=== PATIENT | female | born 1940 | race Caucasian/White ===

== ENCOUNTER 2017-10-19 14:50 | Outpatient (REF) | payer MEDICARE, BC, SELFPAY ==
[2017-10-19 21:44] LABS: Abs Immature Grans 0.01 k/cumm (0.0-0.09); Absolute Basophil Count 0.04 k/cumm (0.0-0.2); Absolute Eosinophil Count 0.11 k/cumm (0.0-0.7); Absolute Monocyte Count 0.55 k/cumm (0.11-0.7); Absolute Neutrophil Count 3.79 k/cumm (1.2-6.7); Basophils % 0.7; Eosinophils % 1.9; HGB 13.5 g/dL (12.0-15.5); Immature Grans % 0.2; Lymphocytes % 22.4; Mean Corp. HGB Concentration 33.8 g/dL (32.0-36.0); Mean Corpuscular Hemoglobin 32.1 pg (27.0-33.0); Mean Platelet Volume 13.6 fL (8.0-11.0); Monocytes % 9.5; Neutrophils % 65.3; Platelet Count 136 x1000/uL (130-400); RBC 4.21 m/cumm (4.00-5.20); RBC Distribution Width 14.9 % (11.7-14.6)
[2017-10-19 22:17] LABS: ALT 24 U/L (12-78); AST 20 U/L (15-37); Alkaline Phosphatase 90 U/L (46-116); Anion Gap 11.3 mmol/L (3-11); BUN 25 mg/dL (7-18); Bilirubin, Total 0.6 mg/dL (0.2-1.0); CO2 26.7 mmol/L (21.0-32.0); CREATININE 1.27 mg/dL (0.55-1.02); Calcium 8.8 mg/dL (8.5-10.1); Chloride 105 mmol/L (98-107); Cholesterol 163 mg/dL (50-200); Glucose 227 mg/dL (70-100); HDL Cholesterol 38 mg/dL (40-60); LDL CHOLESTEROL 112 mg/dL (<100); Potassium 3.7 mmol/L (3.5-5.1); Sodium 143 mmol/L (136-145); TSH (W/Ref FT4) 1.35 uIU/mL (0.358-3.74); Total Protein 7.3 g/dL (6.4-8.2); Triglyceride 144 mg/dL (30-150)
[2017-10-19 22:31] LABS: Uric Acid 6.7 mg/dL (2.6-6.0)
== END 2017-10-19 14:51 ==
LOC: NCHCN 14:50
PROVIDERS: PCP Nurse Practitioner Family; Visit Provider Family Medicine
DX: E11.9 Type 2 diabetes mellitus without complications (principal); M10.9 Gout, unspecified
CPT/HCPCS: 80053; 80061; 83721; 83036; 84443; 84550; 85025

== ENCOUNTER 2018-05-31 15:27 | Outpatient (REF) | payer MEDICARE, BC, SELFPAY | END 2018-05-31 15:47 | LOC: NCHCN 15:27 | PROVIDERS: PCP Nurse Practitioner Family; Visit Provider Internal Medicine | DX: R35.0 Frequency of micturition (principal) | CPT/HCPCS: 87086 ==